=== PATIENT | female | born 1975 | race Caucasian/White ===

== ENCOUNTER → 2017-03-09 | Outpatient (CLI) | payer OTHER ==
--- NOTE | 2017-03-09 19:31 | Diagnostic Imaging Report ---
INDICATION: Palpable lump in the right breast. No prior mammograms are available for comparison. The current study was also evaluated with a Computer Aided Detection (CAD) system. A BB marker was placed at the area of palpable abnormality in the outer right breast. Bilateral CC and MLO 3-D tomography was performed. Bilateral ML 3-D tomography was also performed. Both breasts are heterogeneously dense, limiting the sensitivity of mammography. No discrete mass or malignant appearing microcalcifications are seen. Axillae are unremarkable. There is a well-defined tiny nodule in the upper portion of the left breast posterior depth, consistent with intramammary lymph node. IMPRESSION: No mammographic features suspicious for malignancy are identified. Even so, since patient has clinically palpable mass in the outer portion of the right breast, further evaluation with ultrasound is recommended. ACR BI-RADS Category 0: Incomplete. (Needs additional imaging evaluation). Result letter will be mailed to the patient. Note: At least 10% of breast cancer is not imaged by mammography. Dictated by: Dictated on workstation # [id number]
--- NOTE | 2017-03-09 19:34 | Diagnostic Imaging Report ---
INDICATION: Palpable lump right breast. Correlation is made with the diagnostic mammogram earlier the same day. FINDINGS: Sonographic interrogation of the area of lump in the outer right breast was performed. No solid or cystic mass is detected. IMPRESSION: No sonographic abnormality is detected. The patient may return to routine annual screening mammography. ACR BI-RADS Category 1: Negative. Dictated by: Dictated on workstation # [id number]
== END ==
LOC: RAD 12:13
PROVIDERS: ATTEND Nurse Practitioner Family
DX: N63.10 Unspecified lump in the right breast, unspecified quadrant (principal)
CPT/HCPCS: 77066